=== PATIENT | female | born 1970 | race Caucasian/White ===

== ENCOUNTER 2018-01-05 08:51 | Inpatient (IN) | END 2018-01-06 14:37 | disposition home or self-care (01) | DRG 581 ==

== ENCOUNTER 2018-10-19 06:57 | Day surgery (SDC) | payer OTHER ==
[~2018-10-19] VITALS: Ht 154.9 cm; Wt 76.6 kg
[~2018-10-19 06:57] MED LIST: FER325 PO; LISI10TA2 PO
[2018-10-19 07:45] VITALS: Ht 154.9 cm; Wt 76.6 kg
[2018-10-19 07:57] VITALS: BP 139/69; PULSE 62; RESP 18
[2018-10-19] MEDS ORDERED: MIDAZOLAM 1 MG/ML 2 ML INJ ONE ×3 (09:42)
[2018-10-19] MEDS ORDERED: FENTAnyl 50 MCG/ML VIAL ONE (09:42)
--- NOTE | 2018-10-19 16:55 | CONS ---
DATE OF ADMISSION: 10/19/2018 DATE OF CONSULTATION: PATIENT NAME: LETTY CLARK TYPE OF CONSULTATION: Preoperative gastroenterology. Dr. Huber: I thank you very much for this kind referral. HISTORY OF PRESENT ILLNESS: Ms. Letty Clark is a 48-year-old female patient who has been referred to me for further evaluation of change in the bowel habit and iron-deficiency anemia. No past history of colon neoplasm. The patient never had screening colonoscopy. Appetite is good. No weight loss. No history of peptic ulcer disease. No upper abdominal pain. Not on nonsteroidal anti-inflammatory agents. Status post cholecystectomy. No liver disease. She has hypertension. Not a diabetic. No heart disease, lung problem or kidney disease. Has hyperlipidemia. Had breast cancer for which she has undergone surgery and chemotherapy. SOCIAL HISTORY: Nonsmoker. No alcohol abuse. FAMILY HISTORY: No family history of gastrointestinal tract neoplasm. ALLERGIES: NO DRUG ALLERGIES. MEDICATIONS: Medicine for high blood pressure, iron. PHYSICAL EXAMINATION: She is 5 feet 1 inch tall and weighs 171 pounds. HEART: Normal heart sounds. LUNGS: Clear. ABDOMEN: Soft, no masses. Normal bowel sounds. NEUROLOGIC: Normal neurological exam. IMPRESSION: 1. Iron deficiency. 2. The patient never had screening colonoscopy. 3. Hypertension. 4. Hyperlipidemia. 5. History of breast cancer for which she has undergone surgery and chemotherapy. 6. Status post cholecystectomy. PLAN: Colonoscopy and upper endoscopy for further evaluation. The procedures and possible complications are well explained to the patient. She understands and con sents to the procedures. I thank you once again. With warmest personal regards, Dictated By: JD GIRARD/NAGI Conf#: [id number] DID#: [id number]
== END 2018-10-19 12:57 | disposition home or self-care (01) ==
LOC: GIL 06:57
PROVIDERS: ATTEND Internal Medicine Gastroenterology
DX: K64.8 Other hemorrhoids (principal); D50.9 Iron deficiency anemia, unspecified; K44.9 Diaphragmatic hernia without obstruction or gangrene; K21.9 Gastro-esophageal reflux disease without esophagitis; K29.60 Other gastritis without bleeding
CPT/HCPCS: 43239; 45378; 84703; 88305; 88312; J2250; J3010; Z7610

== ENCOUNTER 2019-01-23 10:32 | Day surgery (SDC) | payer OTHER ==
[~2019-01-23] VITALS: Ht 154.9 cm; Wt 74.4 kg
[2019-01-23] VITALS (24 sets, daily range): BP systolic 114–152; BP diastolic 67–91; PULSE 62–106; RESP 10–24; Ht 154.9 cm; Wt 74.4 kg
[~2019-01-23 10:32] MED LIST changes: +CEFAZOLIN 2 GM/50 ML (PMX) 50 ML IVPB ONE; +DIPHENHYDRAMINE 50 MG INJ ONE; +LEVO50TA71 PO; +SOD CHLORIDE 0.9% 1,000 ML IV SCH
[2019-01-23] MEDS ORDERED: BUPIVACAINE LIPOSOME/PF 266 MG/20 ML VIAL INFIL SCH (14:00)
[2019-01-23] MEDS ORDERED: HYDROCODONE/APAP (5/325) TAB PO PRN (15:30)
[2019-01-23] MEDS ORDERED: ACETAMINOPHEN 325 MG TAB PO PRN (15:30)
[2019-01-23] MEDS ORDERED: morphine 2 MG INJ IV PRN (15:30)
[2019-01-23] MEDS ORDERED: ONDANSETRON 4 MG INJ IV PRN ×2 (15:30→18:30)
[2019-01-23] MEDS ORDERED: POLYMYXIN/BACITRACIN 1L IRRIG ONE (15:34)
[2019-01-23] MEDS ORDERED: GENTAMICIN 80 MG INJ ONE (15:34)
[2019-01-23] MEDS ORDERED: MIDAZOLAM 1 MG/ML 2 ML INJ ONE (15:42)
[2019-01-23] MEDS ORDERED: FENTAnyl 50 MCG/ML VIAL ONE (17:31)
[2019-01-23] MEDS ORDERED: PROPOFOL 20 ML ONE (17:56)
[2019-01-23] MEDS ORDERED: LIDOCAINE 2% (SDV) 5 ML INJ ONE (17:56)
[2019-01-23] MEDS ORDERED: CEFAZOLIN 1 GM INJ ONE (17:56)
[2019-01-23] MEDS ORDERED: ONDANSETRON 4 MG INJ ONE (17:56)
[2019-01-23] MEDS ORDERED: DIPHENHYDRAMINE 50 MG INJ IV PRN (18:30)
[2019-01-23] MEDS ORDERED: METOCLOPRAMIDE 10 MG INJ IV PRN (18:30)
[2019-01-23] MEDS ORDERED: HYDROmorphONE 1 MG/5 ML IV SYRINGE IV PRN ×2 (18:30)
[2019-01-23] MEDS ORDERED: FENTAnyl 50 MCG/ML VIAL IV PRN (18:30)
[2019-01-23] MEDS ORDERED: OXYCODONE/ACETAMINOPHEN (5/325) TAB PO PRN ×2 (18:30)
[2019-01-23] MEDS ORDERED: MEPERIDINE 25 MG INJ IV PRN (18:30)
[2019-01-23] MEDS ORDERED: LABETALOL HCL 20MG INJ IV PRN (18:30)
== END 2019-01-23 20:11 | disposition home or self-care (01) ==
LOC: SDS 10:32
PROVIDERS: ATTEND Surgery Plastic and Reconstructive Surgery
DX: N65.1 Disproportion of reconstructed breast (principal); Z85.3 Personal history of malignant neoplasm of breast; I10 Essential (primary) hypertension; E11.9 Type 2 diabetes mellitus without complications; E78.5 Hyperlipidemia, unspecified; E03.9 Hypothyroidism, unspecified; E66.9 Obesity, unspecified; Z68.31 Body mass index [BMI] 31.0-31.9, adult
CPT/HCPCS: 19318; 19357; 82962; 84703; 88305; J0690; J1170; J1580; J2175; J2250; J2270; J2405; J2765; J3010; Z7512; Z7610; J1200